=== PATIENT | male | born 1990 ===

== ENCOUNTER 2020-03-10 03:16 | Emergency (ER) | payer SELFPAY ==
--- NOTE | 2020-03-10 03:48 | ER ---
Nurse's Notes [facility] Name: Jose Farley Age: 29 yrs Sex: Male : 1990 Arrival Date: 03/10/2020 Time: 03:30 Bed 4 Private MD: Diagnosis: Presentation: 03/10 03:30 Chief complaint: EMS states: Called for patient unresponsive; Narcan given x1; Patient lp1 A/O x4 on arrival to ED, unable to recall events; States "smoking a blunt and taking a Xanax pill". 03:30 Coronavirus screen: Client denies travel out of the [place] in the last 14 days. At this lp1 time, the client does not indicate any symptoms associated with coronavirus-19. Ebola Screen: No symptoms or risks identified at this time. Initial Sepsis Screen: Does the patient meet any 2 criteria? No. Patient's initial sepsis screen is negative. Does the patient have a suspected source of infection? No. Patient's initial sepsis screen is negative. Risk Assessment: Do you want to hurt yourself or someone else? Patient reports no desire to harm self or others. Onset of symptoms was March 10, 2020. 03:30 Method Of Arrival: EMS: [facility] lp1 03:30 Acuity: KAYDEN 3 lp1 Historical: - Allergies: 03:30 No Known Allergies; lp1 - Home Meds: 03:30 None [Active]; lp1 - PMHx: 03:30 Bipolar disorder; lp1 - Immunization history:: Adult Immunizations up to date. - Social history:: Smoking status: Patient reports the use of cigarette tobacco products. Assessment: 03:30 General: Appears in no apparent distress. comfortable, Behavior is calm, cooperative, jb4 appropriate for age. Pain: Denies pain. Neuro: Level of Consciousness is awake, alert, obeys commands, Oriented to person, place, time, situation. Cardiovascular: Patient's skin is warm and dry. Respiratory: Airway is patent Respiratory effort is even, unlabored, Respiratory pattern is regular, symmetrical. GI: No signs and/or symptoms were reported involving the gastrointestinal system. : No signs and/or symptoms were reported regarding the genitourinary system. EENT: No signs and/or symptoms were reported regarding the EENT system. Derm: Skin is intact, Skin is pink, warm \\T\\ dry. Musculoskeletal: Circulation, motion, and sensation intact. Range of motion: intact in all extremities. 03:38 Reassessment: Patient ambulating around room, steady gait noted; states feeling better, lp1 would like to call significant other for ride home;. 03:46 Reassessment: Patient's significant other, Sophie, to picker operator patient for ride home; lp1 phone: [phone]. Vital Signs: 03:30 BP 126 / 82; Pulse 108; Resp 18; Temp 98.4(O); Pulse Ox 98% on R/A; Weight 83.91 kg lp1 (R); Height 5 ft. 11 in. (180.34 cm); Pain 0/10; 03:30 Body Mass Index 25.80 (83.91 kg, 180.34 cm) lp1 ED Course: 03:30 Patient arrived in ED. lp1 03:30 Arm band placed on right wrist. lp1 03:33 Jong Thornton MD is Attending Physician. pkl 03:44 Triage completed. lp1 03:46 IV discontinued, No redness/swelling at site. Pressure dressing applied. lp1 Administered Medications: No medications were administered Outcome: 03:47 Eloped from patient exam room, before seeing physician lp1 03:47 Condition: stable 03:48 Patient left the ED. lp1 Signatures: Jong Thornton MD MD pkl Ashlee Peoples, RN RN lp1 Aron Hinojosa, RN RN jb4
[2020-03-10 03:52] VITALS: BP 126/82; TEMP 98.4; O2SAT 98
== END 2020-03-10 03:48 | disposition left against medical advice (07) ==
LOC: ER 03:16 → EDBD 03:16 → ER 03:48
DX: Z53.21 Procedure and treatment not carried out due to patient leaving prior to being seen by health care provider (principal)
CPT/HCPCS: 99282